=== PATIENT | female | born 1965 | race Asian ===

== ENCOUNTER 2017-01-30 23:36 | Emergency (ER) | payer OTHER ==
[~2017-01-30] VITALS: Ht 162.6 cm; Wt 65.4 kg
[2017-01-30 23:37] VITALS: BP 130/77
== END 2017-01-31 00:27 | disposition home or self-care (01) ==
LOC: ED 23:59
DX: R11.2 Nausea with vomiting, unspecified (principal); G56.00 Carpal tunnel syndrome, unspecified upper limb
CPT/HCPCS: 99283

== ENCOUNTER 2020-11-17 14:05 | Emergency (ER) | payer OTHER ==
[~2020-11-17] VITALS: Ht 157.5 cm; Wt 60.2 kg
[2020-11-17] MEDS ORDERED: MORPHINE SULFATE 4 MG/ML, 1ML IVPush PRN (15:00)
[2020-11-17 15:05] LABS: BASOPHILS % (AUTO) 1 % (0-1); EOSINOPHILS % (AUTO) 0 % (1-7); LYMPHOCYTES % (AUTO) 22 % (22-44); MEAN CORPUSCULAR HEMOGLOBIN 30.7 pg (27.0-34.8); MEAN PLATELET VOLUME 8.7 fL (7.4-10.4); MONOCYTES % (AUTO) 6 % (2-9); NEUTROPHILS % (AUTO) 71 % (42-75); PLATELET COUNT 194 x10^3/uL (130-400); RED CELL DISTRIBUTION WIDTH 13.2 % (9.6-15.2)
--- NOTE | 2020-11-17 15:14 | NUR ---
REPORT FROM [facility]. PT REPORTS NO DIZZINESS CURRENTLY. PENDING LAB RESULTS.
[2020-11-17 15:18] LABS: ALANINE AMINOTRANSFERASE 55 U/L (12-78); ANION GAP 6 mmol/L (5-15); CALCIUM 9.4 mg/dL (8.5-10.1); CHLORIDE 111 mmol/L (98-107); CREATININE 0.81 mg/dL (0.55-1.02)
[2020-11-17 15:20] LABS: ALKALINE PHOSPHATASE 82 U/L (45-117); BILIRUBIN,TOTAL 0.5 mg/dL (0.2-1.0); TOTAL PROTEIN 7.8 g/dL (6.4-8.2)
[2020-11-17 16:03] VITALS: BP 121/61
== END 2020-11-17 16:06 | disposition home or self-care (01) ==
LOC: ED 16:00
DX: R42 Dizziness and giddiness (principal); V49.49XA Driver injured in collision with other motor vehicles in traffic accident, initial encounter; Y93.89 Activity, other specified; Y92.89 Other specified places as the place of occurrence of the external cause; Y99.8 Other external cause status
CPT/HCPCS: 36415; 80053; 85025; 93005; 99284